=== PATIENT | male | born 1995 | race Caucasian/White ===

== ENCOUNTER 2017-12-25 14:10 | Emergency (ER) | payer BC, OTHER ==
[~2017-12-25] VITALS: Ht 177.8 cm; Wt 73.3 kg
[2017-12-25 14:17] VITALS: TEMP 37; Ht 177.8 cm; Wt 73.3 kg
[2017-12-25] MEDS ORDERED: IBUPROFEN 600 MG TAB PO STA (14:31)
--- NOTE | 2017-12-25 14:59 | DIAGNOSTIC IMAGING REPORT ---
LEFT ANKLE 3 VIEWS CLINICAL HISTORY: Left ankle injury. FINDINGS: 3 views of the left ankle are obtained. No prior studies are available for comparison at the time of dictation. The skeletal structures are well mineralized. There is a minimally distracted spiral fracture of the distal fibula. No additional fracture is seen. There is mild widening of the medial joint space which measures 4.5 mm. There is an ankle joint effusion, and soft tissue swelling is present around the ankle. IMPRESSION: 1. There is a minimally distracted spiral fracture of the distal fibula with associated joint effusion and soft tissue edema. 2. There is widening of the medial joint space which measures up to 4.5 mm. Electronically signed by: Mars Todd M.D. 12/25/2017 2:58 PM Dictated Date/Time: 12/25/2017 2:57 PM
[2017-12-25 15:58] VITALS: BP 148/64; PULSE 100; O2SAT 98
--- NOTE | 2017-12-25 20:49 | EMERGENCY ROOM VISIT NOTE ---
ED Visit Note First contact with patient: 14:21 Chief Complaint: I hurt my left ankle. History of Present Illness: Mr. Isaac is a 22-year-old white male who ambulates into the ED on crutches complaining of left lateral ankle pain. Patient reports Jeremy night, 2 days ago, he was wrestling with a friend. They lost their balance and when they fell he reports he twisted his ankle and his friend fell on top of the ankle. Since that time he has been having pain over the distal fibula of the left ankle. Currently he complains of a throbbing sharp pain over the distal fibula. He rates his discomfort 8/10. His pain is nonradiating. His pain worsens with weightbearing, ambulation, palpation and inversion. He has not identified any alleviating factors related to the pain. He has not taken any medication for pain prior to arrival at the hospital. Associated with his pain he reports he had some intermittent tingling sensation in the toes but that is subsequently resolved. Additionally he denies hip pain, thigh pain, knee pain, lower leg pain, previous significant injuries or surgeries to the ankle, numbness or weakness of the leg or foot. Review of Systems: As noted above in history of present illness. Past Medical History: Patient denies. Current Medications: Patient denies. Allergies to Medications: Patient denies. Social History: Patient is currently a college student; he feels safe in his home environment; he denies tobacco use and admits to alcohol use. Physical Examination: Vital Signs: Date Time Temp Pulse Resp B/P (MAP) Pulse Ox O2 Delivery O2 Flow Rate FiO2 12/25/17 15:58 100 20 148/64 98 12/25/17 14:17 37.0 110 18 153/98 96 Room Air GENERAL: 22-year-old male in mild to moderate distress due to pain, nontoxic- appearing, afebrile and hemodynamically stable. NEUROLOGICAL: Awake, alert and oriented to person, place and time. Answering questions appropriately and following commands. SKIN: Warm, dry and pink. No open soft tissue trauma noted. LEFT LOWER EXTREMITY: No gross bony deformity. No shortening or malrotation. No tenderness in the hip, knee, lower leg. Moderate tenderness over the lateral malleolus with no gross bony deformity or crepitus. Moderate swelling over the lateral malleolus and ecchymosis inferior to the malleolus and extending distal the towards the fifth metacarpal. Because he was splinting because of pain it was difficult to assess his ligamentous structures. He did have full range of motion in plantarflexion and dorsiflexion of the ankle and flexion and extension of all the toes. Distal pulses were intact and capillary refill was brisk. He was able to distinguish light sensations to all dermatomes of the foot and toes. ED Course: Patient is assessed as noted above. Patient's medication list was reviewed. Patient was given ice and 600 mg of ibuprofen by mouth for pain. Left Ankle X-Rays: Were read by myself and the radiologist showing a minimally distracted spiral fracture of the distal fibula with joint effusion and soft tissue edema. Additionally radiologist does note that there is widening of the medial joints space up to 4.5 mm. Patient was placed in an Ortho-Glass stirrup and posterior ankle splint. Because his crutches were borrowed they were evaluated and sized appropriately for his height. Patient was educated about today's findings and instructed on his treatment plan ; he verbalized understanding and agreement with this plan. Clinical Impression: Left closed distal fibula fracture. Disposition: Patient discharged home in stable condition accompanied by male friend; prior to departure he was reassessed and subjectively reported he was pain-free. Plan: Patient was encouraged alternate ibuprofen and acetaminophen every 3 hours as needed for persistent pain. Patient was encouraged use ice on his ankle 30 minutes every couple hours while awake and while at rest elevate his ankle. Patient was encouraged to use splint and crutches until followed up with orthopedic for definitive care and treatment. Patient was not immediately from this area and he was referred to [facility] for definitive care and treatment. Patient was encouraged return the ED for worsening/uncontrolled pain, uncontrolled swelling, foot weakness/numbness/tingling or any new/concerning symptoms.
[2017-12-27] MEDS ORDERED: HYDR-5688 PO (12:52)
== END 2017-12-25 15:59 | disposition home or self-care (01) ==
LOC: C.EDB 14:12 → C.EDD 15:59
DX: S82.832A Other fracture of upper and lower end of left fibula, initial encounter for closed fracture (principal); W01.0XXA Fall on same level from slipping, tripping and stumbling without subsequent striking against object, initial encounter; X50.1XXA Overexertion from prolonged static or awkward postures, initial encounter; Y93.83 Activity, rough housing and horseplay; Y99.8 Other external cause status

== ENCOUNTER → 2017-12-26 | Outpatient (CLI) | payer BC ==
[~2017-12-26] MED LIST: HYDR-5688 PO
== END | disposition home or self-care (01) ==
LOC: C.RDSM 12:36
PROVIDERS: ATTEND Physical Medicine & Rehabilitation Sports Medicine
DX: S82.402A Unspecified fracture of shaft of left fibula, initial encounter for closed fracture (principal); X58.XXXA Exposure to other specified factors, initial encounter; M25.571 Pain in right ankle and joints of right foot

== ENCOUNTER → 2017-12-29 | Day surgery (SDC) | payer BC ==
[2017-12-27 12:53] VITALS: Ht 177.8 cm; Wt 68.2 kg
[~2017-12-29] VITALS: Ht 177.8 cm; Wt 68.2 kg
[~2017-12-29] MED LIST changes: +ATROPINE SULFATE 0.1 MG/ML 5ML SYR IV PRN; +BUPIVACAINE 0.5 % 5 MG/1 ML MPF 30ML VIAL ONE; +CEFAZOLIN 1000MG IV PUSH 7.5 ML IV SCH; +CHECK SCOPOLAMINE PATCH PLACEMENT SCH; +DEXAMETHASONE SOD INJ 4 MG/ML VIAL ONE; +EpHEDrine SULFATE INJ 50 MG/ML AMP IV PRN; +FENTANYL CITRATE INJ 50 MCG/1 ML 2 ML VIAL IV PRN; +FENTANYL CITRATE INJ 50 MCG/1 ML 2 ML VIAL ONE; +LACTATED RINGER'S 1000ML 1,000 ML IV SCH; +LIDOCAINE HCL 2% 2 ML VIAL (20MG/ML) ONE; +MIDAZOLAM HCL 1 MG/ML 2ML VIAL ONE; +ONDANSETRON INJ 2 MG/ML 2 ML VIAL IV PRN; +ONDANSETRON INJ 2 MG/ML 2 ML VIAL ONE; +OXYCODONE HCL IR 5 MG TAB (IMMEDIATE RELEASE) PO PRN; +PROPOFOL IV EMULSION 10 MG/ML 20 ML VIAL ONE; +ROPIVACAINE 0.5% 5 MG/ML 30 ML VIAL ONE; +SCOPOLAMINE 1.5 MG TDSY TD ONE; +SCOPOLAMINE 1.5 MG TDSY TD SCH
--- NOTE | 2017-12-29 12:46 | History & Physical Bridge Note ---
H&P Re-Evaluation Bridge Note: I have examined the patient, reviewed the History & Physical and in the interval since the performance of the History & Physical I have noted the following changes of clinical significance: No changes noted
--- NOTE | 2017-12-29 14:36 | [facility] Post Operative Brief Note ---
Immediate Operative Summary Operative Date December 29, 2017. Pre-Operative Diagnosis Left Distal Fibula Fracture Post-Operative Diagnosis same as pre op Procedure(s) Performed Left Distal Fibular Fracture Open Reduction Internal Fixation Surgeon Dr Levin Logging Operations Inspector Surgeon(s) Dr Yannick Nice Estimated Blood Loss 25ml Findings Consistent with Post-Op Diagnosis Specimens none Drains None Anesthesia Type General Regional Complication(s) none Disposition Accompanied Pt To Recovery: no Disposition: Surgical ICU
--- NOTE | 2017-12-29 15:01 | Discharge Instructions ---
Discharge Instructions Date of Service December 29, 2017. Admission Reason for Admission: Left Distal Fibula Fracture Discharge Discharge Diagnosis / Problem: Left distal fibula fracture Discharge Goals Goal(s): Decrease discomfort, Improve function, Increase independence, Improve nutritional status Activity Recommendations Activity Limitations: per Instructions/Follow-up section Lifting Limitations: none Exercise/Sports Limitations: until after follow-up appointment Shower/Bathe: keep incision dry Driving or Machine Use: no drivign until instructed otherwise Weightbearing Status: Left non-weightbearing . Instructions / Follow-Up Instructions / Follow-Up DIET: * Resume previous diet. MEDICATIONS: * Please take your prescriptions as instructed at your pre-op appointment and/ or see medication discharge instructions listed above. * You may take a non-steroidal anti-inflammatory such as ibuprofen to decrease pain and swelling * If concerns develop, call your physician's office at . SPECIAL CARE INSTRUCTIONS: * Ice/Elevate as instructed. * Keep dressing and splint clean, dry, intact. * Your surgical extremity may be discolored due to prepping agents used on the skin. A bluish-green tint is a normal variant and should not cause alarm. Call your doctor at [phone] if: * Temperature above 101 degrees * Pain not relieved by pain medicine ordered * There is increased drainage or redness from any incision * You have any unanswered questions, problems or concerns. FOLLOW UP VISIT: * If not already scheduled, please call the office at to schedule a follow-up appointment. Current Hospital Diet Patient's current hospital diet: Discharge Diet Recommended Diet: Regular Diet Procedures Procedures Performed: Left Distal Fibular Fracture Open Reduction Internal Fixation Pending Studies Studies pending at discharge: no Medical Emergencies . Who to Call and When: Medical Emergencies: If at any time you feel your situation is an emergency, please call 911 immediately. . Non-Emergent Contact Non-Emergency issues call your: Primary Care Provider Call Non-Emergent contact if: temperature is above 100.5, your pain is not controlled, your pain is worsening, wound has increased drainage . "Provider Documentation" section prepared by Yannick Nice. . [place] Drug Monitoring Program Search Results: patient reviewed within database
--- NOTE | 2017-12-29 15:13 | [facility] Operative Report ---
Operative Report Operative Date December 29, 2017. Pre-Operative Diagnosis Left Distal Fibula Fracture Post-Operative Diagnosis same as pre op Procedure(s) Performed Left Distal Fibular Fracture Open Reduction Internal Fixation Surgeon Dr Levin Financial Assistant Surgeon(s) Dr Yannick Nice Estimated Blood Loss 25ml Findings Fractured left distal fibula with widening medial clear space Specimens none Anesthesia Laryngeal mask with popliteal block Complication(s) None Disposition Recovery Room / PACU Indications Patient is a 22-year-old male with a left distal fibular fracture. He has widening of the medial clear space. Description of Procedure Informed consent obtained. Preop surgical timeout performed. Patient identified. I marked the operative site with my initials. He received a preop dose of IV antibiotics. Anesthetic was administered. Positioned supine on the OR table with a bump on her left hip and tourniquet on left thigh. Fluoroscopic guidance utilized throughout procedure. Bony prominences inspected and padded DVT prophylaxis with early mobility. Limb prepped and draped in the usual sterile fashion. Limb exsanguinated with Esmarch and tourniquet inflated to 225 mmHg. Approximately 8-10 cm incision centered over the distal fibula. Blunt dissection through the subcutaneous tissues which were thin. The periosteum was divided in line with the shaft of the fibula and subperiosteal exposure of the fracture was performed. The fracture site was opened up and cleaned of soft tissue and hematoma. It was anatomically reduced with a bone tenaculum. A lag screw was inserted from proximal to distal. 3.5 mm lag screw with excellent bite. This was then neutralized with a 7 hole one third tubular locking plate. I selected a locking plate because the distal fragment was short and only 2 screws could be placed distally. 2 locking screws were placed distally and 3 bicortical screws proximally. Syndesmosis stable. Radiographs revealed an anatomic reduction of fracture. Yazidism of the ankle mortise and good placement of the hardware. There was no posterior or medial fracture noted. At the beginning of the operation stress mortise view confirmed 5+ mm of widening of the medial clear space. This could also be felt clinically as a [id number] shifting of the ankle on physical exam. Tourniquet let down and meticulous hemostasis performed. The plate was covered over with the periosteum using 2-0 Vicryl. The skin was then closed with 4-0 Vicryl and [place]. The leg was cleaned with wet and dry sponges and a soft sterile dressing was applied followed by posterior splint ankle neutral position. Patient was awake from anesthesia. Taken to recovery in stable condition. Counts were correct. Blood loss minimal. I spoke to patient's mother informed her my findings. For now he will be nonweightbearing with a splint. He will follow-up in the office as scheduled. He will be able to begin early weightbearing once his wound is healed. I attest to the content of the Intraoperative Record and any orders documented therein. Any exceptions are noted below.
--- NOTE | 2017-12-29 15:24 | Anesthesia Progress Nt - [facility] ---
Anesthesia Post Op Note Date & Time December 29, 2017 at 15:24 Vital Signs Pain Intensity: 0 Vital Signs Past 12 Hours Date Time Temp Pulse Resp B/P (MAP) Pulse Ox O2 Delivery O2 Flow Rate FiO2 12/29/17 14:54 37 80 20 117/63 98 Mask 6 12/29/17 12:57 88 12/29/17 12:57 89 20 99 12/29/17 12:56 144/85 12/29/17 12:56 144/85 12/29/17 12:53 93 12/29/17 12:53 96 28 99 12/29/17 12:53 93 12/29/17 12:53 96 28 99 12/29/17 12:51 149/87 12/29/17 12:51 149/87 12/29/17 12:48 90 15 99 12/29/17 12:48 92 12/29/17 12:48 90 15 99 12/29/17 12:48 92 12/29/17 12:46 155/84 12/29/17 12:46 155/84 12/29/17 12:43 93 12/29/17 12:43 92 7 100 12/29/17 12:43 92 7 100 12/29/17 12:43 93 12/29/17 12:42 98 12/29/17 12:42 97 10 100 12/29/17 12:41 156/90 12/29/17 12:41 156/90 12/29/17 12:38 115 17 100 12/29/17 12:38 115 12/29/17 12:37 113 24 100 12/29/17 12:37 112 12/29/17 12:37 112 12/29/17 12:37 113 24 100 12/29/17 12:36 153/106 12/29/17 12:36 153/106 12/29/17 11:40 36.6 80 20 138/86 (103) 98 Room Air Notes Mental Status: alert / awake / arousable, participated in evaluation Pt Amnestic to Procedure: Yes Nausea / Vomiting: adequately controlled Pain: adequately controlled Airway Patency, RR, SpO2: stable & adequate BP & HR: stable & adequate Hydration State: stable & adequate Anesthetic Complications: no major complications apparent
[2017-12-29 15:30] VITALS: TEMP 36.5
[2017-12-29 15:51] VITALS: BP 133/81; PULSE 85; O2SAT 95
== END | disposition home or self-care (01) ==
LOC: X.SURG 11:23
PROVIDERS: ATTEND Physical Medicine & Rehabilitation Sports Medicine
DX: S82.832A Other fracture of upper and lower end of left fibula, initial encounter for closed fracture (principal); X58.XXXA Exposure to other specified factors, initial encounter; Y93.72 Activity, wrestling